=== PATIENT | female | born 1985 | race Caucasian/White ===

== ENCOUNTER 2025-02-20 17:07 | Emergency (ER) | payer OTHER, SELFPAY ==
[2025-02-20 17:12] VITALS: BP 154/93
[2025-02-20 17:41] LABS: Urine Albumin 2+ (Neg - Trace); Urine Bilirubin Negative (Negative); Urine Character Clear (Clear); Urine Color Red; Urine Glucose Negative (Negative); Urine Ketone Negative (Negative); Urine Leukocyte 1+ (Negative); Urine Nitrite Negative (Negative); Urine Occult Blood 4+ (Negative); Urine Urobilinogen Negative (Neg - 1+); Urine pH 6.5 (5.0-9.0)
[2025-02-20 17:43] LABS: % Basophils 0.6 % (0-2); % Eosinophils 4.3 % (0-6); % Immature Granulocytes 0.3 % (0-0.5); % Lymphocytes 31.6 % (20.5-51.1); % Monocytes 5.1 % (1.7-9.3); % Neutrophils 58.1 % (42.2-75.2); Absolute Eosinophils 0.3 10^3/uL (0-0.7); Absolute Lymphocytes 2.2 10^3/uL (1.2-3.4); Absolute Monocytes 0.4 10^3/uL (0.1-0.6); Hematocrit 43.9 % (37.0-47.0); Hemoglobin 14.6 g/dL (12.0-16.0); Mean Corp Hgb Conc. 33.3 g/dL (33.0-37.0); Mean Corpuscular Hgb 28.1 pg (27.0-31.0); Mean Corpuscular Volume 84.4 fL (81.0-99.0); Mean Platelet Volume 9.7 fL (7.4-10.4); Nucleated Red Blood Cells % 0 %; Platelet Count 239 10^3/uL (130-400); Red Cell Dist. Width 11.9 % (11.5-14.5); White Blood Cell Count 6.9 10^3/uL (4.8-10.8)
[2025-02-20 17:51] LABS: HCG, Serum Qualitative Screen Negative
[2025-02-20 17:58] LABS: ALT (SGPT) 20 U/L (0-35); AST (SGOT) 23 U/L (14-36); Albumin 4.6 g/dl (3.5-5.0); Alkaline Phosphatase 65 U/L (38-126); Blood Urea Nitrogen 10 mg/dl (7-17); Carbon Dioxide 26 mmol/L (22-30); Chloride 106 mmol/L (98-107); Glucose 92 mg/dl (70-99); Potassium 3.7 mmol/L (3.5-5.1); Sodium 140 mmol/L (135-145); Total Bilirubin 0.4 mg/dl (0.2-1.3); Total Protein 7.5 g/dl (6.3-8.2); eGFR > 60.00
[2025-02-20 18:07] LABS: Urine White Cell 0-2 /HPF (0-5)
--- NOTE | 2025-02-20 20:43 | ED.GENMED ---
History of Present Illness
General
Chief Complaint: Vaginal Bleeding
Source: patient
Exam Limitations: none
Time Seen by Provider: 02/20/25 20:35
Nursing documentation reviewed up to this point in time: agreed with
History of Present Illness
History of Present Illness:
Patient to ED with complaint of abnormal vaginal bleeding. She states she had an abnormal period in December - heavy bleeding, normal period in January, and now another heavy period. ALso notes migraine with this period. SHe does have a history of
migraines. Brought to ED by spouse for eval. SHe called her aircraft electronics technical officer and has an appointment scheduled for tomorrow.
Past History
Past History
ED Past Medical History: Asthma, Psychiatric (ADHD, anxiety/depression) and Other (Endometriosis)
ED Past Surgical History: Gynecological (Laparoscopy for endometriosis, tubal ligation)
Social History
Tobacco: Smoker
Alcohol: Occasional
Personal:
Living: with family
Employment: Employed
Family History
Family History: Other (Noncontributory)
Review of Systems
Review of Systems
All Other Systems: ROS reviewed and negative except as documented in HPI and ROS
Constitutional: Reports no symptoms
EENT: Reports no symptoms
Respiratory: Reports no symptoms
Cardiac: Reports no symptoms
ABD/GI: Reports no symptoms
: Reports bleeding (heavy vaginal bleeding)
Musculoskeletal: Reports no symptoms
Skin: Reports no symptoms
Neurological: Reports no symptoms
Psychiatric: Reports no symptoms
Phy Exam
General Physical Exam
General Presentation: well appearing and no apparent distress
General age: appears stated age
General Skin: warm and dry
General Habitus: normal
General Mental: alert
Gastrointestinal Exam
Gastrointestinal Exam: non tender and soft
Genitourinary Exam Female
Exam Female: no adnexal tenderness, no CMT, no lesions and no mass
Vaginal Exam: normal (small amt of bleeding. No clots)
Vaginal Bleeding: minimal
Musculoskeletal Exam
Musculoskeletal Exam: full ROM and neuro vasc intact
Skin Exam
Skin Exam: normal color, warm/dry and no rash
Psychiatric Exam
Psychiatric Exam: normal mood/affect
Course
Orders/Labs/Results
Orders:
Orders
02/20/25 17:16
Test Result ONCE
02/20/25 17:29
Type+Screen Urgent
Complete Blood Count/With Diff Urgent
Comprehensive Metabolic Panel Urgent
HCG, Serum Qualitative Screen Urgent
Urine Microscopic Reflex Cult Urgent
Urine Reflex Culture from UA [Urinalysis Reflex To Culture] Urgent
Date Specimen was Collected: 02/20/25
Time Specimen was Collected: 17:16
Urine Culture Urgent
WILLIAM Source: U
Specimen Description:
Date Specimen was Collected: 02/20/25
Time Specimen was Collected: 17:16
02/20/25 21:51
Pelvis (Non Obstetric) US [US Pelvis Only (non-obstetric)] Urgent
Comment:
Reason For Exam: heavy bleeding
02/20/25 22:24
ABO2 Urgent
BBK Wristband Number:
Associate notified that ABO2 has been ordered: [id number]
Date: 02/20/25
Time: 17:36
Sweet Dough Mixer ID: [id number]
Abnormal Lab Results
02/20/25
17:29
Ur Occult Blood Reflex 4+ A
(Negative)
Leukocyte Esterase Rfl 1+ A
(Negative)
Urine RBC 3-6 A /HPF
(0-2)
Urine Albumin (Reflex) 2+ A
(Neg - Trace)
02/20/25 17:29
02/20/25 17:29
Vital Signs
Initial and Last Documented VS:
Initial Vital Signs
Temp Pulse Resp BP Pulse Ox
98.0 F 89 20 154/93 99
02/20/25 17:12 02/20/25 17:12 02/20/25 17:12 02/20/25 17:12 02/20/25 17:12
Last Documented Vital Signs
Temp Pulse Resp BP Pulse Ox
98.0 F 89 20 121/83 99
02/20/25 17:12 02/20/25 17:12 02/20/25 17:12 02/20/25 22:18 02/20/25 22:19
ED Attending Note
-
Portions of this chart may have been created with voice recognition software.� Occasional wrong word or��sound alike� substitutions may have occurred due to the inherent limitations of voice recognition software.
Discharge Plan
Departure
Patient with high blood pressure during this ER visit?: No
Condition: Good
Covid-19: Not Applicable
Discharge Problem:
Episode of heavy vaginal bleeding
Instructions: Heavy Periods (DC)
Prescriptions:
No Action
venlafaxine [Effexor XR] 75 mg Capsule,Extended Release 24hr
75 mg PO DAILY
dextroamphetamine-amphetamine [Adderall XR] 20 mg Capsule,Extended Release 24hr
20 mg PO DAILY
levonorgestrel-ethinyl estrad [Setlakin] 0.15 mg-30 mcg (91) Tablets,Dose Pack,3 Month
1 tab PO DAILY
acetaminophen [acetaminophen] 325 mg tablet
650 mg PO Q4HPRN PRN (Reason: mild pain) Qty: 1 0RF
ibuprofen 200 mg tablet
400 - 600 mg PO Q6HPRN PRN (Reason: moderate pain) Qty: 1 0RF
oxycodone 5 mg tablet
5 mg PO Q4HPRN PRN (Reason: breakthrough/severe pain) Qty: 10 0RF
Referrals:
Leonora Hayden DO [Family Provider] -
Activity Restrictions/Additional Instructions:
Follow up with your aircraft electronics technical officer tomorrow as planned.
Interventions
Interventions:
*Risk Screen - Suicide Last Done: 02/20/25 22:14
*General Assessment Last Done: 02/20/25 17:12
*Neglect/Abuse Screening Last Done: 02/20/25 22:14
*ED- Fall Risk Assessment Last Done: 02/20/25 22:14
*ED COVID-19 Vaccine History Last Done: 02/20/25 22:14
ED-Female Genitourinary Assessment Last Done: 02/20/25 22:14
Discharge Date and Time
Print Language: KHMER
[2025-02-20 22:14] VITALS: BMI 31.0
[2025-02-20 22:18] VITALS: BP 121/83
[2025-02-21 00:09] VITALS: BP 131/76
== END 2025-02-21 00:10 | disposition home or self-care (01) ==
LOC: EMR 17:07
PROVIDERS: EMERGENCY PHYSICIAN Student in an Organized Health Care Education/Training Program; FAMILY PHYSICIAN Internal Medicine
DX: N92.0 Excessive and frequent menstruation with regular cycle (principal); J45.909 Unspecified asthma, uncomplicated; F90.9 Attention-deficit hyperactivity disorder, unspecified type; F41.8 Other specified anxiety disorders; F17.200 Nicotine dependence, unspecified, uncomplicated; Z98.51 Tubal ligation status
CPT/HCPCS: 99284; 76856; 80053; 81003; 81015; 84703; 85025; 86850; 86900; 86901; 87086